=== PATIENT | male | born 1970 | race Caucasian/White ===

== ENCOUNTER 2018-02-27 02:34 | Emergency (ER) | payer BC ==
[~2018-02-27] VITALS: Ht 175.3 cm; Wt 102.3 kg
[2018-02-27 02:39] VITALS: TEMP 97
[2018-02-27] MEDS ORDERED: PRINZIDE 12.5 M1 TA1 PO (02:47)
[2018-02-27 04:18] LABS: BASO # 0.1 (0.0-0.2); BASO % 0.9 % (0.0-2.0); EOS # 0.1 (0.0-0.7); EOS % 1.5 % (0-4.0); GRAN # 3.7 (1.4-6.5); GRAN % 55.5 % (42.2-75.2); HEMATOCRIT 38.6 % (42.0-52.0); HEMOGLOBIN 13.4 g/dl (13.5-18.0); LYMPH # 2.3 (1.2-3.4); LYMPH % 33.7 % (20.0-51.0); MEAN CELL VOLUME 84 fl (80.0-100.0); MEAN CORPUSCULAR HEMOGLOBIN 29 pg (27.0-31.0); MEAN CORPUSCULAR HGB CONC 35 g/dl (33.0-37.0); MEAN PLATELET VOLUME 10.1 fl (7.4-10.4); MONO # 0.6 (0.1-0.6); MONO % 8.3 % (1.7-9.3); PLATELET COUNT 222 K/mm3 (130-400); REDCELL DISTRIBUTION WIDTH-CV 13.6 % (11.5-14.5)
[2018-02-27 04:35] LABS: C-REACTIVE PROTEIN 0.8 mg/dL (0.0-0.9); CALCIUM 9.1 mg/dL (8.4-10.2); CREATININE, serum 0.86 mg/dL (0.66-1.25); POTASSIUM 3.5 mmol/L (3.4-5.0)
[2018-02-27] MEDS ORDERED: AMOXICILLIN 50500 MG PO (05:55)
[2018-02-27] MEDS ORDERED: PREDNISONE20 MG PO (05:56)
[2018-02-27] MEDS ORDERED: NORVASC 5MG5 MG/TAB PO (06:06)
[2018-02-27 06:55] VITALS: BP 136/93; PULSE 80
== END 2018-02-27 07:00 | disposition home or self-care (01) ==
LOC: COL.ER 02:34
PROVIDERS: Emergency Medicine
DX: K12.2 Cellulitis and abscess of mouth (principal); F45.8 Other somatoform disorders; T78.3XXA Angioneurotic edema, initial encounter; I10 Essential (primary) hypertension
CPT/HCPCS: J1200; J2930; J7050; Q9967